=== PATIENT | female | born 1955 | race Caucasian/White ===

== ENCOUNTER 2018-07-07 18:28 | Inpatient (IN) | payer OTHER ==
--- NOTE | 2018-07-07 18:35 | ED ---
Fall HPI - General Stated Complaint: FALL, LOWER BACK PAIN Time Seen by Provider: 07/07/18 18:34 Source: RN notes reviewed, old records reviewed Limitations: no limitations - History of Present Illness Initial Comments: This is a 62-year-old female the ER for evaluation. Patient is status post fall. Patient fell backwards landing on her feet or 4 days 5 days ago. Patient unable to get of bed today secondary severe pain. No loss of bowel or bladder no neurological complaints MD Complaint: fall -: days(s) (5) Fall From: standing When Fall Occurred: # days [employer] (6), recurrent falls Fall Witnessed: no Place Fall Occurred: home Loss of Consciousness: none Prolonged Down Time?: no Symptoms Prior to Fall: none Location: back Severity: severe Severity scale (1-10): 10 Quality: aching Context: tripped/slipped Associated Symptoms: denies - Related Data Home Medications Medication Instructions Recorded Confirmed Albuterol Inhaler [Ventolin Hfa 2 puff INHALATION RT-Q6H PRN 07/07/18 07/07/18 Inhaler] Albuterol Nebulized [Ventolin 2.5 mg INHALATION RT-Q6H PRN 07/07/18 07/07/18 Nebulized] Budesonide-Formot 160-4.5 Mcg 2 puff INHALATION RT-BID 07/07/18 07/07/18 [Symbicort 160-4.5 Mcg Inhaler] Fluticasone/Salmeterol 2 puff INHALATION RT-Q12H 07/07/18 07/07/18 [Fluticasone-Salmeterol 232-14] Naproxen Sodium [Aleve] 220 mg PO DAILY PRN 07/07/18 07/07/18 Verapamil HCl [Verapamil ER] 240 mg PO DAILY 07/07/18 07/07/18 predniSONE See Taper PO DIRECTED 07/07/18 07/07/18 Allergies Allergy/AdvReac Type Severity Reaction Status Date / Time sulfamethoxazole Allergy Swelling Verified 07/07/18 19:01 [From Bactrim] trimethoprim [From Bactrim] Allergy Swelling Verified 07/07/18 19:01 Review of Systems ROS Statement: Those systems with pertinent positive or pertinent negative responses have been documented in the HPI. ROS Other: All systems not noted in ROS Statement are negative. General Exam - General Exam Comments Initial Comments: Severe lumbar spine tenderness General appearance: alert, in no apparent distress Head exam: Present: atraumatic, normocephalic, normal inspection Eye exam: Present: normal appearance, PERRL, EOMI. Absent: scleral icterus, conjunctival injection, periorbital swelling ENT exam: Present: normal exam, mucous membranes moist Neck exam: Present: normal inspection. Absent: tenderness, meningismus, lymphadenopathy Respiratory exam: Present: normal lung sounds bilaterally. Absent: respiratory distress, wheezes, rales, rhonchi, stridor Cardiovascular Exam: Present: regular rate, normal rhythm, normal heart sounds. Absent: systolic murmur, diastolic murmur, rubs, gallop, clicks GI/Abdominal exam: Present: soft, normal bowel sounds. Absent: distended, tenderness, guarding, rebound, rigid Extremities exam: Present: normal inspection, full ROM, normal capillary refill. Absent: tenderness, pedal edema, joint swelling, calf tenderness Back exam: Present: normal inspection Neurological exam: Present: alert, oriented X3, CN II-XII intact Psychiatric exam: Present: normal affect, normal mood Skin exam: Present: warm, dry, intact, normal color. Absent: rash Course Vital Signs 07/07/18 07/07/18 07/07/18 18:32 19:02 19:15 Temperature 98.5 F Pulse Rate 97 101 H 89 Respiratory 22 Rate Blood Pressure 181/92 O2 Sat by Pulse 94 L Oximetry - Reevaluation(s) Reevaluation #1: 07/07/18 20:16 Medical records reviewed Reevaluation #2: 07/07/18 20:16 Patient's pain is improved, difficulty with ambulation Medical Decision Making - Medical Decision Making 62 female the ER status post fall does have acute T1 compression fracture, will admit for pain control - Lab Data Result diagrams: 07/07/18 19:00 07/07/18 19:00 Lab Results 07/07/18 07/07/18 07/07/18 Range/Units 19:00 19:00 19:00 WBC 11.4 H (3.8-10.6) k/uL RBC 4.06 (3.80-5.40) m/uL Hgb 12.8 (11.4-16.0) gm/dL Hct 38.7 (34.0-46.0) % MCV 95.3 (80.0-100.0) fL MCH 31.6 (25.0-35.0) pg MCHC 33.1 (31.0-37.0) g/dL RDW 12.7 (11.5-15.5) % Plt Count 339 (150-450) k/uL Neutrophils % 76 % Lymphocytes % 15 % Monocytes % 4 % Eosinophils % 3 % Basophils % 0 % Neutrophils # 8.7 H (1.3-7.7) k/uL Lymphocytes # 1.7 (1.0-4.8) k/uL Monocytes # 0.4 (0-1.0) k/uL Eosinophils # 0.4 (0-0.7) k/uL Basophils # 0.0 (0-0.2) k/uL Sodium 136 L (137-145) mmol/L Potassium 5.1 (3.5-5.1) mmol/L Chloride 103 (98-107) mmol/L Carbon Dioxide 27 (22-30) mmol/L Anion Gap 6 mmol/L BUN 14 (7-17) mg/dL Creatinine 0.36 L (0.52-1.04) mg/dL Est GFR (CKD-EPI)AfAm >90 (>60 ml/min/1.73 sqM) Est GFR (CKD-EPI)NonAf >90 (>60 ml/min/1.73 sqM) Glucose 112 H (74-99) mg/dL Calcium 8.9 (8.4-10.2) mg/dL Phosphorus 2.5 (2.5-4.5) mg/dL Magnesium 1.9 (1.6-2.3) mg/dL Total Bilirubin 0.8 (0.2-1.3) mg/dL AST 25 (14-36) U/L ALT 21 (9-52) U/L Alkaline Phosphatase 100 (38-126) U/L Troponin I <0.012 (0.000-0.034) ng/mL Total Protein 6.6 (6.3-8.2) g/dL Albumin 3.8 (3.5-5.0) g/dL - EKG Data -: EKG Interpreted by Me (EKG shows sinus rhythm rate of 92, HI 150, QRS 70, QTc 4:30) - Radiology Data Radiology results: report reviewed (CT lumbosacral spine does show T1 compression fracture chest x-rays negative for acute disease), image reviewed Disposition Clinical Impression: Lumbar compression fracture, Fall, COPD (chronic obstructive pulmonary disease) Disposition: [facility] Condition: Fair Instructions (If sedation given, give patient instructions): Acute Low Back Pain (ED) Is patient prescribed a controlled substance at d/c from ED?: No Referrals: Shiva Richard MD [Primary Care Provider] - 1-2 days
[2018-07-07] MEDS ORDERED: SODIUM CHLORIDE 0.9% 1,000 ML IV STA (18:46)
[2018-07-07] MEDS ORDERED: HYDROmorphone 1 MG/ML 1 ML SYRINGE IVP STA (18:46)
[2018-07-07] MEDS ORDERED: IPRATROPIUM-ALBUTEROL 3 ML NEB INHALATION STA (18:46)
[2018-07-07 19:16] LABS: Basophils % (A) 0 %; Eosinophils # (A) 0.4 k/uL (0-0.7); Eosinophils % (A) 3 %; HCT 38.7 % (34.0-46.0); HGB 12.8 gm/dL (11.4-16.0); Lymphocytes # (A) 1.7 k/uL (1.0-4.8); Lymphocytes % (A) 15 %; MCH 31.6 pg (25.0-35.0); MCHC 33.1 g/dL (31.0-37.0); MCV 95.3 fL (80.0-100.0); Mean Platelet Volume 7.2; Monocytes # (A) 0.4 k/uL (0-1.0); Monocytes % (A) 4 %; Neutrophils # (A) 8.7 k/uL (1.3-7.7); Neutrophils % (A) 76 %; Platelet Count 339 k/uL (150-450); RBC 4.06 m/uL (3.80-5.40); RDW 12.7 % (11.5-15.5); WBC 11.4 k/uL (3.8-10.6)
[2018-07-07 19:27] LABS: ALT 21 U/L (9-52); AST 25 U/L (14-36); Albumin 3.8 g/dL (3.5-5.0); Alkaline Phosphatase 100 U/L (38-126); Anion Gap 6 mmol/L; Blood Urea Nitrogen 14 mg/dL (7-17); Calcium 8.9 mg/dL (8.4-10.2); Carbon Dioxide 27 mmol/L (22-30); Chloride 103 mmol/L (98-107); Glucose 112 mg/dL (74-99); Magnesium 1.9 mg/dL (1.6-2.3); Phosphorus 2.5 mg/dL (2.5-4.5); Sodium 136 mmol/L (137-145); Total Bilirubin 0.8 mg/dL (0.2-1.3); Total Protein 6.6 g/dL (6.3-8.2)
[2018-07-07 19:29] LABS: Potassium 5.1 mmol/L (3.5-5.1)
--- NOTE | 2018-07-07 19:54 | CT ---
EXAMINATION TYPE: CT lumbar spine wo con DATE OF EXAM: 07/07/2018 7:46 PM COMPARISON: None HISTORY: Lower back pain after fall ilnjury x1 week ago CT DLP: 1164 mGycm Automated exposure control for dose reduction was used. Unenhanced CT of the lumbar spine was performed. Bone and soft tissue window settings are submitted as well as coronal and sagittal reconstructions. The lumbar vertebra have normal alignment. There is 20% anterior wedging of L1 vertebra that is uncer tain age. This could be acute fracture. There is some mild lumbar spine disc space narrowing. Posteri or elements are intact. There is osteopenia. Abdominal aorta is atheromatous. There is no lumbar para spinal mass. There is no spinal stenosis. Sacroiliac joints appear intact. IMPRESSION: Mild compression fracture of L1 could be relatively acute fracture. Spondylotic changes.
--- NOTE | 2018-07-07 19:56 | CT ---
EXAMINATION TYPE: CT sacrum wo con DATE OF EXAM: 07/07/2018 COMPARISON: None HISTORY: Lower back pain after fall ilnjury x1 week ago CT DLP: 1164 mGycm Automated exposure control for dose reduction was used. FINDINGS: Cervical segments have normal alignment. Coccyx is not entirely included on the exam. There is no foc al bone destruction. Sacroiliac joints appear normal. There is no evidence of a sacral fracture. Ther e is L5-S1 spur formation and disc space narrowing. IMPRESSION: NO SACRAL FRACTURE SEEN.
--- NOTE | 2018-07-07 19:58 | XR ---
EXAMINATION TYPE: XR chest 2V DATE OF EXAM: 07/07/2018 COMPARISON: NONE HISTORY: Weakness TECHNIQUE: Frontal and lateral views of the chest are obtained. FINDINGS: Heart size is normal. There are some linear infiltrate in the right lower lobe. The left l kathrin is clear. There is no heart failure. There is some poorly marginated infiltrate in the right midl kathrin field. Bony thorax is intact. IMPRESSION: There is some infiltrate or atelectasis in the right lower lobe. No heart failure seen. Normal heart.
[2018-07-07] MEDS ORDERED: HYDROmorphone 0.5 MG/0.5 ML SYRINGE IVP STA (20:18)
[2018-07-07] MEDS ORDERED: ONDANSETRON 4 MG/2 ML VIAL IVP PRN (20:18)
[2018-07-07] MEDS: ONDANSETRON 4 MG/2 ML VIAL IVP STA (20:19)
[2018-07-07] MEDS: HYDROmorphone 1 MG/ML 1 ML SYRINGE IVP PRN (22:53)
[2018-07-07] MEDS ORDERED: ALBUTEROL NEBULIZED 2.5 MG/3 ML INHALATION PRN (23:25)
[2018-07-07] MEDS ORDERED: HYDROcodone/APAP 5-325MG 1 EACH TAB PO PRN (23:28)
[2018-07-08 00:42] LABS: Appearance,Urine Clear (Clear); Bilirubin,Urine Negative (Negative); Blood,Urine Negative (Negative); Color,Urine Yellow; Glucose,Urine (UA) Negative (Negative); Ketones,Urine 1+ (Negative); Leukocyte Esterase,Urine Negative (Negative); Nitrite,Urine Negative (Negative); Protein,Urine Negative (Negative); Specific Gravity,Urine 1.016 (1.001-1.035)
[2018-07-08] MEDS: HYDROmorphone 1 MG/ML 1 ML SYRINGE IVP PRN ×3 (03:06→12:09)
[2018-07-08] MEDS: SODIUM CHLORIDE 0.9% 1,000 ML IV SCH ×2 (07:33→10:44)
[2018-07-08] MEDS: SYMBICORT 160-4.5 MCG INHALER INHALATION SCH ×2 (07:45→19:47)
[2018-07-08] MEDS: ALBUTEROL NEBULIZED 2.5 MG/3 ML INHALATION PRN (07:45)
[2018-07-08] MEDS ORDERED: CYCLOBENZAPRINE 10 MG TAB PO PRN (09:28)
[2018-07-08] MEDS: ONDANSETRON 4 MG/2 ML VIAL IVP STA (09:31)
[2018-07-08] MEDS: VERAPAMIL SR 240 MG TABLET.ER PO SCH (09:32)
[2018-07-08] MEDS: ACETAMINOPHEN TAB 325 MG TAB PO SCH ×3 (13:49→23:10)
[2018-07-08] MEDS: FAMOTIDINE 20 MG TAB PO SCH ×2 (14:07→20:47)
[2018-07-08] MEDS: NAPROXEN 250 MG TAB PO SCH ×2 (14:07→20:47)
[2018-07-08] MEDS: BACLOFEN 10 MG TAB PO SCH ×3 (14:09→20:47)
[2018-07-08] MEDS ORDERED: SCOPOLAMINE 1.5MG/72HR PATCH TRANSDERM SCH (15:30)
--- NOTE | 2018-07-08 16:48 | HP ---
HISTORY AND PHYSICAL DATE OF SERVICE: July 08, 2018. PRESENTING COMPLAINT: Back pain. HISTORY OF PRESENTING COMPLAINT: A very pleasant 62-year-old patient of Dr. Richard from [place]. Chronic stable medical conditions include COPD, hypertension, hyperlipidemia, chronic hypoxic respiratory failure, on 2 to 2.5 L of oxygen at home. The patient about a week ago was walking inside the house on a wooden floor when she slipped and she what she described as a split and went down landing on the buttock injuring her lower back. The patient is having some pain, but able to get around. The pain became rather severe, still localized to the lower back and decided to present here. No change in the bowel or urine habits. No radiation. Worse with activity, better with rest. No fever. No chills. The patient did undergo a CT scan of the lumbar spine that showed L1 compression fracture. Dr. Butler was consulted for the same. REVIEW OF SYSTEMS: CONSTITUTIONAL: None. HEENT none. RESPIRATORY: Occasional wheezing. CARDIOVASCULAR: None. GASTROINTESTINAL: None. GENITOURINARY none. MUSCULOSKELETAL as above. DERMATOLOGICAL, HEMATOLOGIC, LYMPHATIC: none. PSYCHIATRY none. NEUROLOGICAL: None. PAST MEDICAL HISTORY: COPD, hypertension, hyperlipidemia, chronic hypoxic respiratory failure on 2 L oxygen. PAST SURGICAL HISTORY: Hysterectomy and tubal ligation. SOCIAL HISTORY: The patient smoked for about 45 years, stopped about a year ago. No alcohol. Lives by herself. FAMILY HISTORY: COPD. HOME MEDICATIONS: 1. Naproxen 220 mg daily p.r.n. 2. Symbicort 160/4.5, 2 puffs b.i.d. 3. Ventolin 2.5 q.6h p.r.n. 4. Ventolin HFA 2 puffs q.6 p.r.n. 5. Prednisone taper. 6. Verapamil ER 240 mg a day. 7. Flexeril 10 mg p.o. t.i.d. ALLERGIES: BACTRIM. PHYSICAL EXAMINATION: VITAL SIGNS: Temperature 98.5, pulse 94, respiratory rate 16. Blood pressure 166/82. Pulse ox 92 percent on 2 L. GENERAL APPEARANCE: Average build, sits, lying in bed. Somewhat uncomfortable. EYES: Pupils are equal. Conjunctivae normal. HEENT: External appearance of nose and ears normal. Oral cavity normal. NECK: JVD not raised. Mass not palpable. RESPIRATORY: Effort normal. LUNGS: Slightly decreased breath sounds. CARDIOVASCULAR: First and second sounds normal. No edema. ABDOMEN: Soft, nontender. Liver and spleen not palpable. LYMPHATIC: No lymph nodes palpable in the neck and axilla. PSYCHIATRY: Alert and oriented x3. Mood and affect normal. NEUROLOGICAL: Pupils equal. Cranial nerves grossly intact. Power and sensation grossly intact. MUSCULOSKELETAL: Able to lift both legs off the bed. Reflexes are equal. INVESTIGATIONS: White count 11.4, hemoglobin 12.8, potassium 5.1, BUN 14, creatinine 0.36. EKG tracing personally reviewed by me shows normal sinus rhythm with some PVC. CT scan of the lumbar spine reports compression fraction of the L1. Chest x-ray film personally reviewed by me shows some prominent pulmonary artery. ASSESSMENT: 1. Acute L1 compression fracture secondary to fall with localized pain not affecting any bladder or bowel movement. 2. Chronic obstructive pulmonary disease in an ex-smoker. 3. Essential hypertension. 4. Hyperlipidemia. 5. Chronic hypoxic respiratory failure on home oxygen 2-2.5 L from underlying chronic obstructive pulmonary disease. PLAN: Orthopedic Spine was consulted. They have ordered a brace for the patient. We will start the patient on naproxen 500 mg twice a day, baclofen around the clock and Tylenol. The patient did get significant nausea from [place]. We will DC the same. We will also add Lovenox for DVT prophylaxis. The patient advised to be out of bed as much possible. Copy to Dr. iRchard. MELLY / TIGRE: [id number] /
[2018-07-09] MEDS: ALBUTEROL NEBULIZED 2.5 MG/3 ML INHALATION PRN ×3 (00:18→13:15)
[2018-07-09] MEDS: ACETAMINOPHEN TAB 325 MG TAB PO SCH ×2 (06:11→11:13)
[2018-07-09] MEDS: SYMBICORT 160-4.5 MCG INHALER INHALATION SCH (08:21)
[2018-07-09] MEDS: VERAPAMIL SR 240 MG TABLET.ER PO SCH (08:45)
[2018-07-09] MEDS: NAPROXEN 250 MG TAB PO SCH (08:45)
[2018-07-09] MEDS: BACLOFEN 10 MG TAB PO SCH ×2 (08:46→12:14)
[2018-07-09] MEDS: FAMOTIDINE 20 MG TAB PO SCH (08:46)
--- NOTE | 2018-07-09 10:05 | P.CNOR ---
<Chato White - Last Filed: 07/09/18 10:01> History of Present Illness - [facility] Consult date: 07/08/18 Requesting physician: Rowdy Stevens Consult reason: fracture (Acute traumatic L1 compression fracture deformity status post fall) History of present illness: Patient is a very pleasant 62-year-old female who is seen and examined the bedside for further evaluation for her lumbar spine. She sustained a fall at home approximately 5 days ago when she fell on the floor landing on her back. She remained at home hoping her pain would resolve. She's been experiencing significant low back pain since that time. She presents to the emergency department yesterday, 07/07/[address] of the lumbar spine and sacrum performed at that time. She was found to have an L1 compression frac ture deformity. She's been admitted for further treatment evaluation. She states her pain is being controlled on pain medication. She received pain medication prior to her physical examination today and she is not currently expressing significant pain during examination. She denies any lower extremity weakness or radiculopathy bilaterally. She denies previous injury to her back. She does have some significant spasms in her back that exacerbate her pain. She does have difficulty with ambulation due to her back pain. She is experiencing some nausea the bedside. She is experiencing spasms in her lumbar spine as well. Past Medical History Past Medical History: COPD, Hyperlipidemia, Hypertension History of Any Multi-Drug Resistant Organisms: None Reported Past Surgical History: Hysterectomy, Tubal Ligation Past Psychological History: No Psychological Hx Reported Smoking Status: Former smoker Past Alcohol Use History: None Reported Past Drug Use History: None Reported - Past Family History Mother Family Medical History: COPD Father Family Medical History: Diabetes Mellitus Medications and Allergies Home Medications Medication Instructions Recorded Confirmed Type Albuterol Inhaler [Ventolin Hfa 2 puff INHALATION RT-Q6H PRN 07/07/18 07/07/18 History Inhaler] Albuterol Nebulized [Ventolin 2.5 mg INHALATION RT-Q6H PRN 07/07/18 07/07/18 History Nebulized] Budesonide-Formot 160-4.5 Mcg 2 puff INHALATION RT-BID 07/07/18 07/07/18 History [Symbicort 160-4.5 Mcg Inhaler] Fluticasone/Salmeterol 2 puff INHALATION RT-Q12H 07/07/18 07/07/18 History [Fluticasone-Salmeterol 232-14] Naproxen Sodium [Aleve] 220 mg PO DAILY PRN 07/07/18 07/07/18 History Verapamil HCl [Verapamil ER] 240 mg PO DAILY 07/07/18 07/07/18 History predniSONE See Taper PO DIRECTED 07/07/18 07/07/18 History Cyclobenzaprine [Flexeril] 10 mg PO TID PRN #60 tab 07/08/18 Rx Allergies Allergy/AdvReac Type Severity Reaction Status Date / Time sulfamethoxazole Allergy Swelling Verified 07/07/18 19:01 [From Bactrim] trimethoprim [From Bactrim] Allergy Swelling Verified 07/07/18 19:01 Physical Examination Physical exam: Patient is awake, alert, and oriented 3 Vital signs stable Good chest excursion with deep inspiration and expiration Abdomen soft nontender Examination of lumbar spine reveals skin is intact with no abrasions, laceratio ns, or bruises; no erythema, purulence or signs of infection No significant pain on palpation along the midline of the lower thoracic or lumbar spine Dorsiflexion, plantarflexion, and extensor hallucis longus positive sustained bilaterally Lower extremity strength 5/5 bilaterally Patellar reflex 2+ bilaterally and Achilles reflexes 2+ bilaterally No lower extremity hyperreflexia bilaterally Straight leg test negative bilateral lower extremities No signs or symptoms of DVT; no calf pain No pain with internal and external rotation of the hips bilaterally Neurovascularly intact Results Pertinent studies: CT of the lumbar spine performed on 07/07/2018: L1 compression fracture deformity with approximately 20% height loss of the superior endplate; L2-3, L3- 4, and L5-S1 degenerative disc disease; lateral osteophytic spurring CT of the sacrum performed on 07/07/2018: No evidence of fracture within the sacrum; L5-S1 degenerative disc disease - Labs Labs: Abnormal Lab Results - Last 24 Hours (Table) 07/07/18 07/07/18 07/07/18 Range/Units 19:00 19:00 23:15 WBC 11.4 H (3.8-10.6) k/uL Neutrophils # 8.7 H (1.3-7.7) k/uL Sodium 136 L (137-145) mmol/L Creatinine 0.36 L (0.52-1.04) mg/dL Glucose 112 H (74-99) mg/dL Urine Ketones 1+ H (Negative) H & H 07/07/18 Range/Units 19:00 Hgb 12.8 (11.4-16.0) gm/dL Hct 38.7 (34.0-46.0) % Result Diagrams: 07/07/18 19:00 07/07/18 19:00 Assessment and Plan Assessment: Assessment: Acute traumatic L1 compression fracture deformity with approximately 20% height loss of the superior endplate Lumbar degenerative disc disease Status post fall Low back pain Lumbar osteophytic spurring Muscle spasms in the lumbar spine (1) Traumatic compression fracture of L1 lumbar vertebra Current Visit: Yes Status: Acute Code(s): S32.010A - WEDGE COMPRESSION FRACTURE OF FIRST LUMBAR VERTEBRA, INIT SNOMED Code(s): 832987981 (2) Status post fall Current Visit: Yes Status: Acute Code(s): Z91.81 - HISTORY OF FALLING SNOMED Code(s): 196290790 (3) Low back pain Current Visit: Yes Status: Acute Code(s): M54.5 - LOW BACK PAIN SNOMED Code(s): 217328712 (4) Lumbar paraspinal muscle spasm Current Visit: Yes Status: Acute Code(s): M62.830 - MUSCLE SPASM OF BACK SNOMED Code(s): 06288618574880831 (5) Lumbar degenerative disc disease Current Visit: Yes Status: Acute Code(s): M51.36 - OTHER INTERVERTEBRAL DISC DEGENERATION, LUMBAR REGION SNOMED Code(s): 71277664 (6) Osteophyte determined by x-ray Current Visit: Yes Status: Acute Code(s): M25.70 - OSTEOPHYTE, UNSPECIFIED JOINT SNOMED Code(s): 825558432888852 Plan: Plan: 1. After further evaluation the patient, reviewing of imaging, and further discussion with the patient, we will currently plan to continue conservative treatment at her lumbar spine. She does have evidence of an L1 compression fracture deformity following her recent fall. She will be prescribed a Spinomed TLSO brace. Prescription for this brace has been written and provided to case management. This brace will be delivered today. Once this brace is delivered and fitted appropriately, patient should wear this brace while sitting upright at greater than 45, during increase activities, and during ambulation. Brace does not have to warm while lying in bed or while bathing. Once this brace is delivered and fitted appropriately, patient is clear for discharge from orthopedic spine standpoint. Following discharge, patient may follow-up with Chato White PA-C or Dr. Shahriar Butler at [facility]. She will also be given a prescription for Flexeril 10 mg, take 1 tab every 8 hours as needed for spasm, dispensed #60 2. Patient will continue be seen and examined by medicine 3. Patient has been discussed in detail Dr. Shahriar Butler and he agrees with this plan Time with Patient: Greater than 30 (Including obtaining history, physical examination, reviewing of imaging, and dictation.) <Cecy Butler - Last Filed: 07/09/18 10:42> Physical Examination Osteopathic Statement: *. No significant issues noted on an osteopathic structural exam other than those noted in the History and Physical/Consult. Results - Labs Labs: H & H 07/07/18 Range/Units 19:00 Hgb 12.8 (11.4-16.0) gm/dL Hct 38.7 (34.0-46.0) % Result Diagrams: 07/07/18 19:00 07/07/18 19:00 Assessment and Plan Plan: The patient is seen and examined today at bedside. She says the pain is significant improved with use of the brace and she has been able to mobilize better with the brace on. She feels she will be okay with continuing her conservative care with the brace for the time being. We discussed the nature of the injury and anticipate that the fracture can heal appropriately with bracing. If she is having worsening of her symptoms she would be a candidate for surgical intervention with L1 kyphoplasty. I discussed again with her today and she is interested continue with conservative care. It is okay from an orthopedic standpoint for her to be discharged home with follow-up with our service next 1-2 weeks. I answered her questions and she is agreeable.
[2018-07-09 15:06] VITALS: BP 122/73; PULSE 74; RESP 16; TEMP 98.3
--- NOTE | 2018-07-11 06:28 | DS ---
DISCHARGE SUMMARY DATE OF ADMISSION: 07/07/2018 DATE OF DISCHARGE: 07/09/2018 FINAL DIAGNOSES: 1. Acute L1 compression fracture secondary to fall. 2. Chronic obstructive pulmonary disease in an ex-smoker. 3. Essential hypertension. 4. Hyperlipidemia. 5. Chronic hypoxic respiratory failure on home oxygen 2.5 L for underlying chronic obstructive pulmonary disease. HOSPITAL COURSE: This patient presented with increasing pain in the lower back, found to have L1 compression fracture, having fallen about a week ago. There was no bladder or bowel involvement. The patient was given a brace. Seen by Dr. Butler. Pain medications antispasmodic were adjusted. Doing better by the time of discharge. CONSULTATION: Dr. Butler from Orthopedics. PHYSICAL EXAMINATION: On examination, temperature 98.3, pulse 74, respirations 16, blood pressure 122/73, pulse ox 94%. LUNGS: Slightly decreased breath sounds. DISCHARGE MEDICATIONS: 1. Ventolin HFA 2 puffs q.6 p.r.n. 2. Ventolin nebulizer 2.5 q.6 p.r.n. 3. Symbicort 160/4.5, two puffs b.i.d. 4. Verapamil ER 240 mg a day. 5. Prednisone taper. 6. Flexeril 10 mg t.i.d. p.r.n. 7. Pepcid 20 mg b.i.d. 8. Naproxen 250 mg p.o. t.i.d. Patient to use a brace as directed. Follow up with Chato White in 2 weeks; Dr. Jeffrey Richard in [place] in 2 days. MMODL / IJN: [id number] /
== END 2018-07-09 16:18 | disposition home or self-care (01) | DRG 543 ==
LOC: EC 18:28 → 4SSUR 20:17 → OBSVTOIN 07-09 14:06
PROVIDERS: ADMIT Hospitalist; ATTEND Hospitalist
DX: M48.56XA Collapsed vertebra, not elsewhere classified, lumbar region, initial encounter for fracture (principal); J96.11 Chronic respiratory failure with hypoxia; M51.36 Other intervertebral disc degeneration, lumbar region; M62.830 Muscle spasm of back; J44.9 Chronic obstructive pulmonary disease, unspecified; I10 Essential (primary) hypertension; E78.5 Hyperlipidemia, unspecified; R29.6 Repeated falls; Z99.81 Dependence on supplemental oxygen; Z79.51 Long term (current) use of inhaled steroids; Z79.899 Other long term (current) drug therapy; Z87.891 Personal history of nicotine dependence; Z91.81 History of falling; Z90.710 Acquired absence of both cervix and uterus; Z98.51 Tubal ligation status; Z88.2 Allergy status to sulfonamides; W01.0XXA Fall on same level from slipping, tripping and stumbling without subsequent striking against object, initial encounter; Y92.009 Unspecified place in unspecified non-institutional (private) residence as the place of occurrence of the external cause; Z82.5 Family history of asthma and other chronic lower respiratory diseases; Z83.3 Family history of diabetes mellitus
CPT/HCPCS: 36415; 71046; 72131; 72192; 80053; 81003; 83735; 84100; 84484; 85025; 94640; 96374; 96375; 99285